=== PATIENT | female | born 1955 | race Caucasian/White ===

== ENCOUNTER → 2018-08-13 | Outpatient (CLI) | payer OTHER ==
[~2018-08-13] MED LIST: ACIPHEX; FLEXERIL PO; LUNESTA1 MG PO; NEXIUM; NORCO 7.5-3251 EACH PO; QVAR HFA 440 MCG/UN1 INH
== END ==
LOC: CAT 11:23
DX: Z13.6 Encounter for screening for cardiovascular disorders (principal); E78.00 Pure hypercholesterolemia, unspecified; Z82.49 Family history of ischemic heart disease and other diseases of the circulatory system